=== PATIENT | male | born 1995 | race Asian ===

== ENCOUNTER 2019-07-12 10:55 | Emergency (ER) | payer SELFPAY ==
--- NOTE | 2019-07-12 11:01 | DI.RAD.S_ITS ---
PROCEDURE: XR KNEE LT 3V INDICATIONS: basketball, now with left knee TECHNIQUE: 3 views of the knee were acquired. COMPARISON: None. FINDINGS: Bones: No fractures or dislocations. No suspicious bony lesions. Soft tissues: There may be very small joint effusion. No suspicious soft tissue calcifications. IMPRESSION: No acute osseous abnormality of the left knee. Dictated by: Samy Dickinson M.D. on 07/12/2019 at 10:34 Approved by: Samy Dickinson M.D. on 07/12/2019 at 10:34
[2019-07-12 11:03] VITALS: BP 138/78; PULSE 100; RESP 13; TEMP 37; O2SAT 100
--- NOTE | 2019-07-12 12:03 | ED.LOWEXIN ---
HPI - Extremity Injury (Lower) <KATERYNA Cole - Last Filed: 07/12/19 12:47> General Chief Complaint: Extremity Injury, Lower Stated Complaint: Left knee disclocation Time Seen by Provider: 07/12/19 11:10 Source: patient Mode of arrival: ambulatory Limitations: no limitations History of Present Illness HPI Narrative: Nonsmoker with history of right knee injury who presents with a chief complaint of He states he was playing basketball yesterday and twisted his left knee in. He states he heard a pop and felt immediate pain. He is able to ambulate after the injury. He denies any falls. He states he has not taken anything for pain. He is very concerned as he has history of right knee injury needs to have surgery for that. He has not iced or elevated his knee. He states it feels unstable. He is concerned about a dislocated knee, though he ambulates into the emergency department independently. Related Data Previous Rx's Medication Instructions Recorded ketorolac 10 mg PO TID PRN #20 tab 07/12/19 Review of Systems <KATERYNA Cole - Last Filed: 07/12/19 12:47> Review of Systems GENERAL: Denies chills, fatigue, malaise, fever, sweats. HEENT: Denies sinus pain, ear pain, sore throat, difficulty swallowing, dizziness. RESPIRATORY: Denies dyspnea, cough, wheezing, hemoptysis, sputum. CARDIOVASCULAR: Denies chest pain, palpitations, orthopnea, edema, GASTROINTESTINAL: Denies nausea, vomiting, abdominal pain, diarrhea, constipation, melena. : Denies dysuria, frequency, incontinence, hematuria, urinary retention. MUSCULOSKELETAL: See HPI SKIN: Denies rash, skin lesions, or other NEUROLOGIC: Denies weakness, headache, numbness, change in speech, confusion, seizures, incoordination. PSYCHIATRIC: No concerning psychosocial issues. 12 point review of systems is negative except for those stated above Exam <KATERYNA Cole - Last Filed: 07/12/19 12:47> Narrative Exam Narrative: GENERAL: This is a well-nourished, well-developed patient, in no acute distress HEAD: Atraumatic. Normocephalic. No temporal or scalp tenderness. EYES: Pupils equal round and reactive. Extraocular motions intact. No scleral icterus. No injection or drainage. ENT: Nose without bleeding, purulent drainage or septal hematoma. Throat without erythema, tonsillar hypertrophy or exudate. Uvula midline. Airway patent. NECK: Trachea midline. No JVD or lymphadenopathy. Supple, nontender, no meningeal signs. CARDIOVASCULAR: Regular rate and rhythm RESPIRATORY: No cough. No increased respiratory effort. No accessory muscle use. GASTROINTESTINAL: Abdomen soft, non-tender, nondistended. No hepato-splenomegaly, or palpable masses. No guarding. EXTREMITIES: Pain to palpation left knee. Able to flex to 90? and extend left knee. Positive pedal pulses. Negative varus valgus, negative posterior anterior drawer. Positive Serafin's test. BACK: Nontender without deformity or crepitance. No flank tenderness. NEURO: AOx3. SKIN: No erythema or ecchymosis noted on knee. Initial Vital Signs Initial Vital Signs: Vital Signs Temperature 98.6 F 07/12/19 11:03 Pulse Rate 100 H 07/12/19 11:03 Respiratory Rate 13 07/12/19 11:03 Blood Pressure 138/78 07/12/19 11:03 Pulse Oximetry 100 07/12/19 11:03 <Kayla Pedro DO - Last Filed: 07/14/19 23:17> Initial Vital Signs Initial Vital Signs: Vital Signs Temperature 98.6 F 07/12/19 11:03 Pulse Rate 100 H 07/12/19 11:03 Respiratory Rate 13 07/12/19 11:03 Blood Pressure 138/78 07/12/19 11:03 Pulse Oximetry 100 07/12/19 11:03 Course <KATERYNA Cole - Last Filed: 07/12/19 12:47> Orders Ordered: Discontinued Medications Ketorolac Tromethamine (Toradol) 60 mg IM NOW ONE Stop: 07/12/19 11:42 Last Admin: 07/12/19 12:15 Dose: Not Given Lidocaine (Lidoderm) 1 each TOP NOW ONE Stop: 07/12/19 11:42 Last Admin: 07/12/19 12:15 Dose: 1 each Vital Signs - 8 hr 07/12/19 11:03 07/12/19 12:39 Temperature 98.6 F Pulse Rate 100 H 62 Respiratory Rate 13 15 Blood Pressure 138/78 Blood Pressure [Left Arm] 116/59 L Pulse Oximetry 100 100 <Kayla Pedro DO - Last Filed: 07/14/19 23:17> Orders Ordered: Discontinued Medications Ketorolac Tromethamine (Toradol) 60 mg IM NOW ONE Stop: 07/12/19 11:42 Last Admin: 07/12/19 12:15 Dose: Not Given Lidocaine (Lidoderm) 1 each TOP NOW ONE Stop: 07/12/19 11:42 Last Admin: 07/12/19 12:15 Dose: 1 each Vital Signs - 8 hr 07/12/19 11:03 07/12/19 12:39 Temperature 98.6 F Pulse Rate 100 H 62 Respiratory Rate 13 15 Blood Pressure 138/78 Blood Pressure [Left Arm] 116/59 L Pulse Oximetry 100 100 MDM - Extremity Injury (Lower) <KATERYNA Cole - Last Filed: 07/12/19 12:47> Imaging Data Knee x-ray: Radiologist's impression: [address] [address] XRay Report Signed Patient: Bubba Hernández BMR#: [id number] : 1995Acct:[id number] Age/Sex: MDate of Service: 07/12/19 Loc: ED Accession Number: [id number] Procedure: XR knee LT 3V Ordering Provider: Kayla Pedro D.O. PROCEDURE: XR KNEE LT 3V INDICATIONS: basketball, now with left knee TECHNIQUE: 3 views of the knee were acquired. COMPARISON: None. FINDINGS: Bones: No fractures or dislocations. No suspicious bony lesions. Soft tissues: There may be very small joint effusion. No suspicious soft tissue calcifications. IMPRESSION: No acute osseous abnormality of the left knee. Dictated by: Samy Dickinson M.D. on 07/12/2019 at 10:34 Approved by: Samy Dickinson M.D. on 07/12/2019 at 10:34 [facility] Narrative Medical decision making narrative: The patient is a 24-year-old male with a chief complaint of instability after twisting his knee yesterday. He has a negative x-ray. He was exam, I am concerned about a meniscal injury. I discussed at length rest ice compression elevation give him a prescription of Toradol with strict instructions to not combine with any other end such as Aleve or ibuprofen. I encouraged him to follow up with his PCP, and possibly [facility]. He states that he does see an orthopedist for his other knee, will likely see the same one. He is neurovascularly intact and is able to weight bear. I discussed at length come back to ER for any acute concerns such as chest pain, shortness of breath, decreased circulation of foot. Patient has no questions or concerns upon discharge and states understanding of return precautions as well as follow-up care. Discharge Plan Departure Patient Disposition: Home Clinical Impression: Acute pain of left knee Strain of left knee Qualifiers: Encounter type: initial encounter Qualified Code(s): S86.912A - Strain of unspecified muscle(s) and tendon(s) at lower leg level, left leg, initial encounter Discharge Date/Time: 07/12/19 12:48 Interventions: ED Discharge Assessment Last Done: 07/12/19 12:47 Instructions: DI for Knee Sprain, How To Perform RICE (Rest, Ice, Compress, Elevate), DI for Knee Pain Activity Restrictions/Additional Instructions: Your x-ray shows no fracture. As discussed we are concerned about a soft tissue injury, please follow up with primary care Provider in the next few days. Please use rest ice compression elevation as well as [id number] pain medications as needed and able. I gave you a prescription for ketorolac do not combine this with any NSAIDs such as Motrin or Aleve or ibuprofen. Please come back to the emergency department for any acute concerns such as chest pain, shortness of breath or decreased circulation to your foot. Prescriptions: New ketorolac 10 mg tablet 10 mg PO TID PRN (Reason: pain) Qty: 20 RF: 0 Stand Alone Forms: Work Release Note <Kayla Pedro DO - Last Filed: 07/14/19 23:17> Cosign ED Attending Donature Attestation: I was immediately available in the department for consultation. Documentation has been reviewed. I agree with assessment and plan.
[2019-07-12] MEDS: LIDOCAINE PATCH 1 EACH ADH..PATCH TOP (12:15)
[2019-07-12 12:39] VITALS: BP 116/59; PULSE 62; RESP 15; O2SAT 100
== END 2019-07-12 12:48 | disposition home or self-care (01) ==
PROVIDERS: Emergency Provider Nurse Practitioner Family
DX: M25.562 Pain in left knee (principal); S86.912A Strain of unspecified muscle(s) and tendon(s) at lower leg level, left leg, initial encounter
CPT/HCPCS: 73562; 99282; 99283